=== PATIENT | male | born 1980 ===

== ENCOUNTER 2017-05-07 17:40 | Inpatient (IN) | payer OTHER ==
--- NOTE | 2017-05-07 18:39 | XRay Report ---
FINAL REPORT PROCEDURE: XR TIBIA FIBULA 2V RT TECHNIQUE: RIGHT tibia and fibula radiographs, AP and lateral views. CPT 39640 HISTORY: Fx COMPARISON: No prior studies are available for comparison. FINDINGS: Fracture (s) and/or Dislocation(s): Acute oblique comminuted fracture is noted involving the distal diametaphyseal region of tibia with medial angulation of the distal fragments. There is also an acute transverse fracture involving the distal fibular diaphysis with medial displacement of the distal fragment. Internal fixation plate and multiple screws are identified in the distal fibular fragment.. Joint space(s): Normal . Soft tissues: Moderate degree soft tissue swelling is noted.. Bone mineralization: Normal . Foreign bodies: None . IMPRESSION: Acute fractures of distal tibia and fibula.
[2017-05-07] MEDS ORDERED: ZOFRAN IV ONE (18:59)
[2017-05-07] MEDS ORDERED: TORADOL IV ONE (18:59)
[2017-05-07] MEDS ORDERED: DILAUDID IV ONE ×2 (18:59→19:27)
--- NOTE | 2017-05-07 20:40 | XRay Report ---
FINAL REPORT EXAM: XR ANKLE 3+V RT HISTORY: right distal leg fracture TECHNIQUE: Right ankle three views PRIORS: None. FINDINGS: Surgical plate and screws bridge a remote distal fibular fracture. The proximal end of the plate there is an acute traumatic displaced fracture of the distal fibula. The proximal shaft of the fibula is laterally displaced approximately 1 bones with. There is an acute oblique fracture of the adjacent distal tibia with apex lateral angulation and displacement. Small comminuted fragments are present distally. No additional acute fractures are identified. The ankle mortise does not appear widened. No radiopaque foreign bodies are observed. IMPRESSION: Acute displaced angulated fractures of the distal tibia and fibular metaphysis Surgical plate and screws within the distal fibula
--- NOTE | 2017-05-07 20:42 | Emergency Department Report ---
ED Lower Extremity HPI - General Chief Complaint: Extremity Injury, Lower Stated Complaint: LEG FX Time Seen by Provider: 05/07/17 19:11 Source: patient, family Mode of arrival: Ambulatory Limitations: Physical Limitation - History of Present Illness Initial Comments: 36-year-old male with no past medical history other than previous right ankle surgery secondary to fracture 8 years ago presents to the hospital complaining of right ankle injury. Patient played soccer on May 04 (3 days ago) injuring his right ankle. Patient unable to bear weight since the fall. His son was graduating he did not want to miss the graduation therefore he's been using crutches and Solitario wrap to ambulate. Pain is 10/10 in intensity, constant, throbbing aching, worse with palpation and movement. No alleviating factors reported - Related Data Home Medications Medication Instructions Recorded Confirmed Last Taken Dextroamphetamine/Amphetamine 30 mg PO DAILY 05/07/17 05/07/17 Unknown [Adderall] Allergies Allergy/AdvReac Type Severity Reaction Status Date / Time No Known Allergies Allergy Unverified 07/01/15 19:17 ED Review of Systems ROS: Stated complaint: LEG FX Other details as noted in HPI Comment: All other systems reviewed and negative Other: Constitutional: No fevers chills Eyes: No eye pain visual changes ENT: No ear pain or throat pain Neck: Denies pain Respiratory: Denies cough wheezing shortness of breath Cardiovascular: Denies chest pain, palpitations, syncope GI: Denies abdominal pain, nausea, vomiting, diarrhea : Denies dysuria Musculoskeletal: As per HPI Skin: Denies rash, lesions, erythema Neurologic: Denies headache, numbness, weakness Psychiatric: Denies suicidal ideation, hallucinations thy ED Past Medical Hx - Past Medical History Previous Medical History?: No - Surgical History Additional Surgical History: Right ankle surgery - Social History Smoking Status: Current Every Day Smoker - Medications Home Medications: Home Medications Medication Instructions Recorded Confirmed Last Taken Type Dextroamphetamine/Amphetamine 30 mg PO DAILY 05/07/17 05/07/17 Unknown History [Adderall] ED Physical Exam - General Limitations: Physical Limitation - Other Other exam information: General: No limitations, patient is alert in no acute distress Head exam: Atraumatic, normocephalic Eyes exam: Normal appearance, pupils equal reactive to light, extraocular movements intact ENT: Moist mucous membrane, normal oropharynx Neck exam: Normal inspection, full range of motion, no meningismus nontender Respiratory exam: Clear to auscultation bilateral, no wheezes, rales, crackles Cardiovascular: Normal rate and rhythm, normal heart sounds Abdomen: Soft, nondistended, and nontender, with normal bowel sounds, no rebound, or guarding Extremity: Significant swelling to the distal right leg and right foot. 2+ DP pulse. Diffuse tenderness to ankle. Positive deformity Back: Normal Inspection, full range of motion, no tenderness Neurologic: Alert, oriented x3, cranial nerves intact, no motor or sensory deficit Psychiatric: normal affect, normal mood Skin: Warm, dry, intact ED Course Vital Signs 05/07/17 05/07/17 05/07/17 17:46 19:44 19:50 Temperature 97.9 F Pulse Rate 120 H 113 H Respiratory 20 18 18 Rate Blood Pressure 141/86 Blood Pressure 141/86 146/84 [Left] O2 Sat by Pulse 97 98 Oximetry 05/07/17 05/07/17 05/07/17 20:00 20:30 21:50 Temperature Pulse Rate 106 H Respiratory 18 18 18 Rate Blood Pressure Blood Pressure 119/63 [Left] O2 Sat by Pulse 98 96 Oximetry - Reevaluation(s) Reevaluation #1: 05/07/17 20:43 Medication medicated with Dilaudid, Zofran, and Toradol for pain ED Lower Extremity MDM - Lab Data Result diagrams: 05/07/17 21:29 05/07/17 21:29 Lab Results 05/07/17 05/07/17 05/07/17 Range/Units 21:29 21:29 21:29 WBC 8.6 (4.5-11.0) K/mm3 RBC 4.22 (3.65-5.03) M/mm3 Hgb 14.4 (11.8-15.2) gm/dl Hct 41.7 (35.5-45.6) % MCV 99 H (84-94) fl MCH 34 H (28-32) pg MCHC 35 H (32-34) % RDW 12.9 L (13.2-15.2) % Plt Count 216 (140-440) K/mm3 Lymph % (Auto) 28.8 (13.4-35.0) % [place] % (Auto) 11.2 H (0.0-7.3) % Eos % (Auto) 5.9 H (0.0-4.3) % Baso % (Auto) 0.7 (0.0-1.8) % Lymph # 2.5 (1.2-5.4) K/mm3 [place] # 1.0 H (0.0-0.8) K/mm3 Eos # 0.5 H (0.0-0.4) K/mm3 Baso # 0.1 (0.0-0.1) K/mm3 Seg Neutrophils % 53.4 (40.0-70.0) % Seg Neutrophils # 4.6 (1.8-7.7) K/mm3 PT 13.0 (12.2-14.9) Sec. INR 0.94 (0.87-1.13) APTT 25.2 (24.2-36.6) Sec. Sodium 137 (137-145) mmol/L Potassium 4.1 (3.6-5.0) mmol/L Chloride 96.6 L (98-107) mmol/L Carbon Dioxide 28 (22-30) mmol/L Anion Gap 17 mmol/L BUN 15 (9-20) mg/dL Creatinine 0.7 L (0.8-1.5) mg/dL Estimated GFR > 60 ml/min BUN/Creatinine Ratio 21 % Glucose 104 H (75-100) mg/dL Calcium 9.0 (8.4-10.2) mg/dL Blood Type Antibody Screen THA Antibody Screen 05/07/17 Range/Units 21:29 WBC (4.5-11.0) K/mm3 RBC (3.65-5.03) M/mm3 Hgb (11.8-15.2) gm/dl Hct (35.5-45.6) % MCV (84-94) fl MCH (28-32) pg MCHC (32-34) % RDW (13.2-15.2) % Plt Count (140-440) K/mm3 Lymph % (Auto) (13.4-35.0) % [place] % (Auto) (0.0-7.3) % Eos % (Auto) (0.0-4.3) % Baso % (Auto) (0.0-1.8) % Lymph # (1.2-5.4) K/mm3 [place] # (0.0-0.8) K/mm3 Eos # (0.0-0.4) K/mm3 Baso # (0.0-0.1) K/mm3 Seg Neutrophils % (40.0-70.0) % Seg Neutrophils # (1.8-7.7) K/mm3 PT (12.2-14.9) Sec. INR (0.87-1.13) APTT (24.2-36.6) Sec. Sodium (137-145) mmol/L Potassium (3.6-5.0) mmol/L Chloride (98-107) mmol/L Carbon Dioxide (22-30) mmol/L Anion Gap mmol/L BUN (9-20) mg/dL Creatinine (0.8-1.5) mg/dL Estimated GFR ml/min BUN/Creatinine Ratio % Glucose (75-100) mg/dL Calcium (8.4-10.2) mg/dL Blood Type A POSITIVE Antibody Screen Not Reportable THA Antibody Screen Negative - Radiology Data Radiology results: report reviewed Right tib-fib x-ray: Acute fracture of the distal tibia and fibula Right ankle x-ray: Acute distress indurated fracture of the distal tibia and fibular metaphysis. Surgical plate and screws within the distal fibula - Medical Decision Making Patient will be admitted for surgical repair of ankle fracture. Dr. Jama orthopedic surgeon informed - Differential Diagnosis fracture, contusion, sprain Critical Care Time: No Critical care attestation.: If time is entered above; I have spent that time in minutes in the direct care of this critically ill patient, excluding procedure time. ED Disposition Clinical Impression: Closed fracture of right distal fibula, Fracture of tibia, distal, closed, History of fracture of right ankle Disposition: OP ADMIT IP TO THIS HOSP Is pt being admited?: Yes Condition: Stable Time of Disposition: 20:50 (Dr Lomeli/hosp)
[2017-05-07 21:55] LABS: Basophils % (Auto) 0.7 % (0.0-1.8); Eosinophils % (Auto) 5.9 % (0.0-4.3); Hematocrit 41.7 % (35.5-45.6); Hemoglobin 14.4 gm/dl (11.8-15.2); Mean Corpuscular HGB Conc 35 % (32-34); Mean Corpuscular Hemoglobin 34 pg (28-32); Mean Corpuscular Volume 99 fl (84-94); Platelet Count 216 K/mm3 (140-440); Red Blood Count 4.22 M/mm3 (3.65-5.03); Red Cell Distribution Width 12.9 % (13.2-15.2); White Blood Count 8.6 K/mm3 (4.5-11.0)
[2017-05-07 22:02] LABS: Anion Gap 17 mmol/L; BUN/Creatinine Ratio 21; Blood Urea Nitrogen 15 mg/dL (9-20); Carbon Dioxide 28 mmol/L (22-30); Chloride 96.6 mmol/L (98-107); Glucose 104 mg/dL (75-100); Potassium 4.1 mmol/L (3.6-5.0); Sodium 137 mmol/L (137-145)
[2017-05-07 22:13] LABS: INR 0.94 (0.87-1.13); Partial Thromboplastin Time 25.2 Sec. (24.2-36.6)
[2017-05-07] MEDS ORDERED: DILAUDID IM PRN (22:43)
[2017-05-07] MEDS ORDERED: ZOFRAN IV PRN (22:44)
[2017-05-07] MEDS ORDERED: RESTORIL PO PRN (22:45)
[2017-05-08] MEDS: DILAUDID IV PRN ×8 (02:32→21:51)
[2017-05-08] MEDS: NACL 0.9% 1000 ML 1,000 ML IV SCH ×3 (02:34→20:56)
--- NOTE | 2017-05-08 08:37 | Progress Note ---
Assessment and Plan Assessment and plan: 36-year-old male with no significant past medical history who presented to the hospital after a right ankle injury from playing soccer 3 days prior to presentation. he is patient has fallen, unable to bear weight on the ankle. Has a previous history of right ankle surgery secondary to fracture 8 years ago. Patient played soccer on May 04 (3 days ago) injuring his right ankle. Xray of R ankle: image reviewed, R ankle Fracture for Orthopedic surgery repair History Interval history: Continues to complain of pain of the right ankle, pain is 10 out of 10, sharp, worse with movement or any attempt to bear weight on the ankle Hospitalist Physical - Physical exam Narrative exam: General.: Appears well, no distress, nontoxic HEENT: Moist mucous membranes, extraocular muscles intact, no lymphadenopathy Neck: supple Cardiac: S1-S2 heard Lungs: clear to auscultation bilaterally Abdomen: soft , nontender, nondistended, bowel sounds positive Extremities: Deformed right ankle Skin: no rash or lesions Neurologic: no gross focal deficits Psych: appropriate behavior, appropriate mood, corporative, judgment intact - Constitutional Vitals: Temp Pulse Resp BP Pulse Ox 98.0 F 76 20 133/79 95 05/08/17 07:35 05/08/17 07:35 05/08/17 08:23 05/08/17 07:35 05/08/17 07:35 Results - Labs CBC & Chem 7: 05/07/17 21:29 05/07/17 21:29 Labs: Laboratory Last Values WBC 8.6 K/mm3 (4.5-11.0) 05/07/17 21: RBC 4.22 M/mm3 (3.65-5.03) 05/07/17 21:29 Hgb 14.4 gm/dl (11.8-15.2) 05/07/17 21:29 Hct 41.7 % (35.5-45.6) 05/07/17 21: MCV 99 fl (84-94) H 05/07/17 21: MCH 34 pg (28-32) H 05/07/17 21: MCHC 35 % (32-34) H 05/07/17 21:29 RDW 12.9 % (13.2-15.2) L 05/07/17 21:29 Plt Count 216 K/mm3 (140-440) 05/07/17 21:29 Lymph % (Auto) 28.8 % (13.4-35.0) 05/07/17 21:29 [place] % (Auto) 11.2 % (0.0-7.3) H 05/07/17 21:29 Eos % (Auto) 5.9 % (0.0-4.3) H 05/07/17 21:29 Baso % (Auto) 0.7 % (0.0-1.8) 05/07/17 21: Lymph # 2.5 K/mm3 (1.2-5.4) 05/07/17 21: [place] # 1.0 K/mm3 (0.0-0.8) H 05/07/17 21: Eos # 0.5 K/mm3 (0.0-0.4) H 05/07/17 21: Baso # 0.1 K/mm3 (0.0-0.1) 05/07/17 21: Seg Neutrophils % 53.4 % (40.0-70.0) 05/07/17 21: Seg Neutrophils # 4.6 K/mm3 (1.8-7.7) 05/07/17 21: PT 13.0 Sec. (12.2-14.9) 05/07/17 21: INR 0.94 (0.87-1.13) 05/07/17 21:29 APTT 25.2 Sec. (24.2-36.6) 05/07/17 21:29 Sodium 137 mmol/L (137-145) 05/07/17 21:29 Potassium 4.1 mmol/L (3.6-5.0) 05/07/17 21:29 Chloride 96.6 mmol/L (98-107) L 05/07/17 21:29 Carbon Dioxide 28 mmol/L (22-30) 05/07/17 21:29 Anion Gap 17 mmol/L 05/07/17 21:29 BUN 15 mg/dL (9-20) 05/07/17 21:29 Creatinine 0.7 mg/dL (0.8-1.5) L 05/07/17 21:29 Estimated GFR > 60 ml/min 05/07/17 21:29 BUN/Creatinine Ratio 21 % 05/07/17 21:29 Glucose 104 mg/dL (75-100) H 05/07/17 21: Calcium 9.0 mg/dL (8.4-10.2) 05/07/17 21: Blood Type A POSITIVE 05/07/17 21:29 Antibody Screen Not Reportable 05/07/17 21:29 THA Antibody Screen Negative 05/07/17 21:29
--- NOTE | 2017-05-08 09:46 | History and Physical Report ---
CHIEF COMPLAINT: Pain in the right ankle area. HISTORY OF PRESENT ILLNESS: The patient is a 36-year-old male who developed pain in the right ankle area after playing soccer 05/04/2017, during which he sustained some injury. The patient said it was difficult to bear weight on that right lower extremity since the game he played and admitted to falling down where he was playing the game. He said he has been using crutches because his son was graduating and he did not want to miss the ceremony, so he Solitario wrapped his ankle and has been using crutches with pain going on. There is no history of shortness of breath and no history of chest pain and the patient presented to the Emergency Room. PAST MEDICAL HISTORY: Pertinent for fracture of the same right ankle in the past. PAST SURGICAL HISTORY: Pertinent for right ankle surgery. FAMILY HISTORY: Noncontributory. SOCIAL HISTORY: The patient smokes cigarettes and does not use illicit drugs. Denies history of alcohol intake. CURRENT MEDICATIONS: The patient is on Adderall 30 mg by mouth daily. ALLERGIES: THE PATIENT IS ALLERGIC TO SHELLFISH. REVIEW OF SYSTEMS: CONSTITUTIONAL: There is no fever, no chills, no diaphoresis. HEENT: There is no headache or sore throat. CARDIOVASCULAR: There is no chest pain, orthopnea. RESPIRATORY: There is no shortness of breath or cough. GASTROINTESTINAL: There is no nausea, no vomiting, no abdominal pain, diarrhea or constipation. NEUROLOGICAL: There is no numbness, no dizziness, no altered mental status. MUSCULOSKELETAL: There is pain in the right ankle and inability to use the right ankle. DERMATOLOGICAL: There is no skin rash or itching. GENITOURINARY: There is no dysuria, hematuria, or flank pain. Rest of system review is normal. PHYSICAL EXAMINATION: GENERAL: At the time of exam, the patient was found to be alert, oriented x 3 and not in acute distress. VITAL SIGNS: Shows temperature of 98.1, pulse of 88, respirations 16, blood pressure 129/76, O2 sat of 97% on room air. HEENT: Showed pupils to be equal, round, reactive to light and accommodation. Extraocular muscles are intact. NECK: Supple with no JVD or carotid bruit. CARDIOVASCULAR: Show first and second heart sounds with no gallops or murmur. RESPIRATORY: Show good air entry on both sides of the lung with no abnormal breath sounds. GASTROINTESTINAL: Show abdomen to be full, soft, nontender with no organomegaly or rigidity. NEUROLOGICAL: Shows no focal deficits. MUSCULOSKELETAL: Showed the right ankle area and legs splinted and wrapped up with Solitario bandage. DERMATOLOGICAL: Show no skin rash. GENITOURINARY: Show no costovertebral angle tenderness. PERTINENT LABORATORY AND IMAGING STUDIES: The x-ray shows acute fracture of the distal tibia and fibula. Lab results, the patient's CBC showed normal white count, normal hemoglobin and normal hematocrit and CBC differential showed elevated monocyte count of 11.2% and elevated eosinophilic count of 5.9%. The patient's chemistry shows normal sodium, normal potassium. Rest of chemistry was unremarkable. DIAGNOSIS: Right ankle bone fracture. PLAN: The patient will be admitted to medical surgical [place] and will be on IV Dilaudid 1 mg every 4 hours as needed for pain. The patient will also be on IV Zofran 4 mg every 6 hours for nausea and vomiting and will remain n.p.o. for evaluation and treatment by the orthopedic surgeon Dr. Jama who has already been consulted by the Emergency Room. The patient will be on Tylenol 650 mg by mouth every 4 hours for fever and headache and will be on temazepam 15 mg at bedtime for insomnia. The patient's home medications will be started as shown in the medication reconciliation section. JOB# [id number] OCN/NTS
[2017-05-08] MEDS ORDERED: DEXTROAMPHETAMINE PO SCH (10:00)
[2017-05-08] MEDS ORDERED: AMPHETAMINE PO SCH (10:00)
[2017-05-08] MEDS ORDERED: SUBLIMAZE ONE ×2 (12:21→16:57)
[2017-05-08] MEDS ORDERED: DIPRIVAN 10 MG/ML IV ONE (12:21)
[2017-05-08] MEDS ORDERED: ANCEF/STERILE WATER 2 GM/20 ML IV NR (13:38)
[2017-05-08] MEDS ORDERED: NEURONTIN PO NR (13:42)
[2017-05-08] MEDS ORDERED: VERSED IV NR (13:42)
[2017-05-08] MEDS ORDERED: PEPCID PO NR (13:42)
--- NOTE | 2017-05-08 13:44 | Anesthesia Day of Surgery ---
Anesthesia Day of Surgery - Day of Surgery Patient Examined: Yes Patient H&P Reviewed: Yes Patient is NPO: Yes
--- NOTE | 2017-05-08 13:44 | Anesthesia Consultation ---
Anesthesia Consult and Med Hx Date of service: 05/08/17 - Airway Anesthetic Teeth Evaluation: Good ROM Head & Neck: Adequate Mental/Hyoid Distance: Adequate Mallampati Class: Class II Intubation Access Assessment: Probably Good - Pulmonary Exam CTA: Yes - Cardiac Exam Cardiac Exam: RRR - Pre-Operative Health Status ASA Pre-Surgery Classification: ASA2 Proposed Anesthetic Plan: General - Pulmonary Hx Smoking: Yes (1/2 PPD, ALSO DIPS) Hx Asthma: No Hx Sleep Apnea: No - Cardiovascular System Hx Hypertension: Yes (NOT ON MEDS) - Central Nervous System Hx Seizures: No CVA: No Hx Psychiatric Problems: No - Endocrine Hx End Stage Renal Disease: No - Other Systems Hx Alcohol Use: No (OCCASIONAL) Hx Cancer: No
[2017-05-08] MEDS ORDERED: XYLOCAINE MPF 2% ONE (14:54)
[2017-05-08] MEDS ORDERED: DECADRON ONE (14:54)
[2017-05-08] MEDS ORDERED: ZOFRAN ONE (14:54)
[2017-05-08] MEDS ORDERED: DILAUDID ONE (16:39)
[2017-05-08] MEDS: SUBLIMAZE IV PRN ×4 (16:53→17:29)
[2017-05-08] MEDS ORDERED: ZOFRAN IV PRN (16:55)
[2017-05-08] MEDS ORDERED: SODIUM CHLORIDE FLUSH SYRINGE 10 ML IV NR ×2 (17:00→18:00)
--- NOTE | 2017-05-08 17:12 | Post Anesthesia Evaluation ---
- Post Anesthesia Evaluation Patient Participated: Yes Airway Patent: Yes Stable Respiratory Function: Yes Temp > 96.8F: Yes Pain Manageable: Yes Adequeate Hydration: Yes Anesthesia Complications: No
--- NOTE | 2017-05-08 17:12 | Procedure Note ---
Date of procedure: 05/08/17 Pre-op diagnosis: displaced right tib-fib fracture Post-op diagnosis: same Procedure: Procedure Closed reduction insertion of intramedullary nail right tibia Indications 36-year-old male who sustained a displaced distal tib-fib fracture as a result of an injury playing soccer yesterday. He has a past history of surgery to his right ankle years ago with retained plate and screws along the distal fibula. Procedure The patient was brought to the OR placed in the OR table in supine position following induction and intubation by anesthesia the patient's right lower extremity was prepped and draped in the usual sterile manner. A timeout procedure was done to identify the patient and the correct operative site. Next the leg was exsanguinated followed by inflation of the pneumatic tourniquet to 300 mmHg an incision was made at the inferior pole of the patella and taken down distally towards 2. Topical incision was carried down through skin and the patella tendon was incised longitudinally and retracted out of the operative field A large awl was used to enter the proximal tibial canal this was followed by insertion of the guidewire under C-arm fluoroscopy the guidewire was advanced down the shaft into and across the fracture site into the distal fragment in AP and lateral view was obtained showing good placement of the guidewire The canal was reamed to a 12 mm diameter measuring the 345 mm length. Following reaming of the medullary canal the IM estelle was assembled and was then placed into the medullary canal and under C-arm fluoroscopy was guided into the distal fragment again AP and lateral views were obtained showing good placement of the medullary nail next the distal and proximal interlocking screws were inserted under fluoroscopic control. Next was then copiously irrigated the patella tendon was repaired using 0 Vicryl followed by closure of the subcutaneous tissue with 2-0 Vicryl and metallic rome for the skin, routine post op dressing applied. He was extubated and taken to post op recovery in stable condition. Anesthesia: GETA Surgeon: MELISSA GRAY Estimated blood loss: minimal Pathology: none Condition: stable Disposition: PACU
[2017-05-08] MEDS: TYLENOL PO PRN (20:52)
[2017-05-09] MEDS: DILAUDID IV PRN ×7 (01:42→20:54)
[2017-05-09] MEDS: NACL 0.9% 1000 ML 1,000 ML IV SCH (06:13)
--- NOTE | 2017-05-09 09:17 | XRay Report ---
RIGHT ANKLE RADIOGRAPHS INDICATION: Intramedullary nail right distal tibia-fibula. COMPARISON: Yesterday. FINDINGS: Frontal and lateral intraoperative fluoroscopic radiographs, 4:01 PM, 05/08/2017 now demonstrate distal tibial intramedullary estelle anchored distally by at least 2 screws. Overall improved fracture alignment. Comminution may again though be noted. Distal fibular hardware appears stable. CONCLUSION: Intraoperative fluoroscopic assistance provided during distal tibial fracture stabilization, as described. Thank you for the opportunity to participate in this patient's care.
--- NOTE | 2017-05-09 09:24 | XRay Report ---
RIGHT TIBIA FIBULA RADIOGRAPHS INDICATION: Distal tibia-fibula fracture. COMPARISON: Yesterday. FINDINGS: Frontal intraoperative fluoroscopic radiographs, 4 images, 3:29 PM, 05/08/2017 demonstrate new tibial intramedullary estelle, anchored by a single threaded screw proximally at this time. Overall improved distal tibial fracture alignment. Stable lower fibular shaft displaced fracture and distal hardware. CONCLUSION: Intraoperative fluoroscopic assistance provided during distal tibial and fibular fracture stabilization, as described. Thank you for the opportunity to participate in this patient's care.
--- NOTE | 2017-05-09 11:37 | Progress Note ---
Assessment and Plan Assessment and plan: 36-year-old male with no significant past medical history who presented to the hospital after a right ankle injury from playing soccer 3 days prior to presentation. he is patient has fallen, unable to bear weight on the ankle. Has a previous history of right ankle surgery secondary to fracture 8 years ago. Patient played soccer on May 04 (3 days ago) injuring his right ankle. Xray of R ankle: image reviewed, R ankle Fracture s/p Orthopedic surgery repair 05/08 continue PT History Interval history: Right ankle pain is improved, now 4/10, dull, worse with movement and bearing weight Hospitalist Physical - Physical exam Narrative exam: General.: Appears well, no distress, nontoxic HEENT: Moist mucous membranes, extraocular muscles intact, no lymphadenopathy Neck: supple Cardiac: S1-S2 heard Lungs: clear to auscultation bilaterally Abdomen: soft , nontender, nondistended, bowel sounds positive Extremities: R ankle with clean bandage, ankle is swollen, not tender Skin: no rash or lesions Neurologic: no gross focal deficits Psych: appropriate behavior, appropriate mood, corporative, judgment intact - Constitutional Vitals: Temp Pulse Resp BP Pulse Ox 99.2 F 80 20 136/87 97 05/09/17 07:45 05/09/17 07:45 05/09/17 07:45 05/09/17 07:45 05/09/17 07:45 Results - Labs CBC & Chem 7: 05/07/17 21:29 05/07/17 21:29 Labs: Laboratory Last Values WBC 8.6 K/mm3 (4.5-11.0) 05/07/17 21:29 RBC 4.22 M/mm3 (3.65-5.03) 05/07/17 21:29 Hgb 14.4 gm/dl (11.8-15.2) 05/07/17 21:29 Hct 41.7 % (35.5-45.6) 05/07/17 21:29 MCV 99 fl (84-94) H 05/07/17 21:29 MCH 34 pg (28-32) H 05/07/17 21:29 MCHC 35 % (32-34) H 05/07/17 21:29 RDW 12.9 % (13.2-15.2) L 05/07/17 21:29 Plt Count 216 K/mm3 (140-440) 05/07/17 21:29 Lymph % (Auto) 28.8 % (13.4-35.0) 05/07/17 21:29 [place] % (Auto) 11.2 % (0.0-7.3) H 05/07/17 21:29 Eos % (Auto) 5.9 % (0.0-4.3) H 05/07/17 21:29 Baso % (Auto) 0.7 % (0.0-1.8) 05/07/17 21: Lymph # 2.5 K/mm3 (1.2-5.4) 05/07/17 21: [place] # 1.0 K/mm3 (0.0-0.8) H 05/07/17 21: Eos # 0.5 K/mm3 (0.0-0.4) H 05/07/17 21: Baso # 0.1 K/mm3 (0.0-0.1) 05/07/17 21: Seg Neutrophils % 53.4 % (40.0-70.0) 05/07/17 21: Seg Neutrophils # 4.6 K/mm3 (1.8-7.7) 05/07/17 21: PT 13.0 Sec. (12.2-14.9) 05/07/17 21:29 INR 0.94 (0.87-1.13) 05/07/17 21:29 APTT 25.2 Sec. (24.2-36.6) 05/07/17 21:29 Sodium 137 mmol/L (137-145) 05/07/17 21:29 Potassium 4.1 mmol/L (3.6-5.0) 05/07/17 21: Chloride 96.6 mmol/L (98-107) L 05/07/17 21:29 Carbon Dioxide 28 mmol/L (22-30) 05/07/17 21:29 Anion Gap 17 mmol/L 05/07/17 21:29 BUN 15 mg/dL (9-20) 05/07/17 21:29 Creatinine 0.7 mg/dL (0.8-1.5) L 05/07/17 21:29 Estimated GFR > 60 ml/min 05/07/17 21:29 BUN/Creatinine Ratio 21 % 05/07/17 21:29 Glucose 104 mg/dL (75-100) H 05/07/17 21:29 Calcium 9.0 mg/dL (8.4-10.2) 05/07/17 21:29 Blood Type A POSITIVE 05/07/17 21:29 Antibody Screen Not Reportable 05/07/17 21:29 THA Antibody Screen Negative 05/07/17 21:29
[2017-05-09] MEDS: TYLENOL PO PRN (14:02)
--- NOTE | 2017-05-09 15:04 | Progress Note ---
Subjective Date of service: 05/09/17 Interval history: Pt seen post-op day 1, satisfied with anesthesia, in considerable pain, says that medicine only works for 30 minutes, informed floor nurse of the situation. Objective - Constitutional Vitals: Vital Signs - 12hr 05/09/17 05/09/17 05/09/17 06:00 06:02 06:13 Temperature 99.6 F Pulse Rate 69 68 Respiratory 15 16 15 Rate Blood Pressure 140/80 [Right] O2 Sat by Pulse 100 99 Oximetry 05/09/17 05/09/17 05/09/17 07:44 07:45 12:55 Temperature 99.2 F 100.4 F H Pulse Rate 84 80 85 Respiratory 20 18 Rate Blood Pressure 136/87 150/93 [Right] O2 Sat by Pulse 97 97 97 Oximetry - Labs CBC & Chem 7: 05/07/17 21:29 05/07/17 21:29
--- NOTE | 2017-05-09 16:28 | Progress Note ---
Assessment and Plan Status post IM nail right tibia doing well Plan -continue physical therapy and observation hopefully discharge soon Subjective Date of service: 05/09/17 Interval history: States feeling much better. Awaiting physical therapy Objective Vital signs: Vital Signs - 12hr 05/09/17 05/09/17 05/09/17 06:00 06:02 06:13 Temperature 99.6 F Pulse Rate 69 68 Respiratory 15 16 15 Rate Blood Pressure 140/80 [Right] O2 Sat by Pulse 100 99 Oximetry 05/09/17 05/09/17 05/09/17 07:44 07:45 12:55 Temperature 99.2 F 100.4 F H Pulse Rate 84 80 85 Respiratory 20 18 Rate Blood Pressure 136/87 150/93 [Right] O2 Sat by Pulse 97 97 97 Oximetry Narrative Exam: Postoperative dressings intact compartments soft good capillary refill moves all digits well - Labs CBC & BMP: 05/07/17 21:29 05/07/17 21:29
[2017-05-10] MEDS: DILAUDID IV PRN ×5 (01:16→20:30)
[2017-05-10] MEDS: ROXICODONE PO PRN ×2 (08:13→15:32)
--- NOTE | 2017-05-10 10:09 | Progress Note ---
Assessment and Plan Assessment and plan: 36-year-old male with no significant past medical history who presented to the hospital after a right ankle injury from playing soccer 3 days prior to presentation. he is patient has fallen, unable to bear weight on the ankle. Has a previous history of right ankle surgery secondary to fracture 8 years ago. Patient played soccer on May 04 (3 days ago) injuring his right ankle. Xray of R ankle: image reviewed, sp repair of tibular and Fibular fracture R ankle Fracture s/p Orthopedic surgery repair 05/08 continue pain control continue PT R knee pain obtain Xray of R knee Tentative DC tomorrow with ambulatory devices if continues to improve History Interval history: Right ankle pain is improved, now 4/10, dull, worse with movement and bearing weight Hospitalist Physical - Physical exam Narrative exam: General.: Appears well, no distress, nontoxic HEENT: Moist mucous membranes, extraocular muscles intact, no lymphadenopathy Neck: supple Cardiac: S1-S2 heard Lungs: clear to auscultation bilaterally Abdomen: soft , nontender, nondistended, bowel sounds positive Extremities: R ankle with clean bandage, ankle is swollen, not tender Skin: no rash or lesions Neurologic: no gross focal deficits Psych: appropriate behavior, appropriate mood, corporative, judgment intact - Constitutional Vitals: Temp Pulse Resp BP Pulse Ox 99.3 F 68 18 132/70 96 05/10/17 07:30 05/10/17 07:32 05/10/17 07:32 05/10/17 07:30 05/10/17 07:32 Results - Labs CBC & Chem 7: 05/07/17 21:29 05/07/17 21:29 Labs: Laboratory Last Values WBC 8.6 K/mm3 (4.5-11.0) 05/07/17 21:29 RBC 4.22 M/mm3 (3.65-5.03) 05/07/17 21:29 Hgb 14.4 gm/dl (11.8-15.2) 05/07/17 21:29 Hct 41.7 % (35.5-45.6) 05/07/17 21:29 MCV 99 fl (84-94) H 05/07/17 21:29 MCH 34 pg (28-32) H 05/07/17 21:29 MCHC 35 % (32-34) H 05/07/17 21:29 RDW 12.9 % (13.2-15.2) L 05/07/17: Plt Count 216 K/mm3 (140-440) 05/07/17 21: Lymph % (Auto) 28.8 % (13.4-35.0) 05/07/17: Aurora % (Auto) 11.2 % (0.0-7.3) H 05/07/17: Eos % (Auto) 5.9 % (0.0-4.3) H 05/07/17 21: Baso % (Auto) 0.7 % (0.0-1.8) 05/07/17: Lymph # 2.5 K/mm3 (1.2-5.4) 05/07/17: Aurora # 1.0 K/mm3 (0.0-0.8) H 05/07/17: Eos # 0.5 K/mm3 (0.0-0.4) H 05/07/17: Baso # 0.1 K/mm3 (0.0-0.1) 05/07/17 21: Seg Neutrophils % 53.4 % (40.0-70.0) 05/07/17: Seg Neutrophils # 4.6 K/mm3 (1.8-7.7) 05/07/17 21: PT 13.0 Sec. (12.2-14.9) 05/07/17: INR 0.94 (0.87-1.13) 05/07/17: APTT 25.2 Sec. (24.2-36.6) 05/07/17 21: Sodium 137 mmol/L (137-145) 05/07/17 21: Potassium 4.1 mmol/L (3.6-5.0) 05/07/17: Chloride 96.6 mmol/L (98-107) L 05/07/17: Carbon Dioxide 28 mmol/L (22-30) 05/07/17:29 Anion Gap 17 mmol/L 05/07/17: BUN 15 mg/dL (9-20) 05/07/17: Creatinine 0.7 mg/dL (0.8-1.5) L 05/07/17 21:29 Estimated GFR > 60 ml/min 05/07/17 21:29 BUN/Creatinine Ratio 21 % 05/07/17 21:29 Glucose 104 mg/dL (75-100) H 05/07/17 21:29 Calcium 9.0 mg/dL (8.4-10.2) 05/07/17 21:29 Blood Type A POSITIVE 05/07/17 21:29 Antibody Screen Not Reportable 05/07/17 21:29 THA Antibody Screen Negative 05/07/17 21:29
--- NOTE | 2017-05-10 12:13 | XRay Report ---
Right knee: AP and lateral views are obtained. Compared to the patient's prior exam of the tibia on May 07 and medullary estelle has been placed in the tibia extending to the soft plateau region. Closure rome are noted anteriorly. There is generalized edema of the soft tissues in the infrapatellar region as well as what appears to be disruption of the soft tissues and fat above the patella. There may be a suprapatellar effusion. The knee joint and bone structures however otherwise appears generally unremarkable and unchanged. Impression: Postoperative placement of tibial estelle and disruption of soft tissues in the knee region.
[2017-05-10] MEDS: NACL 0.9% 1000 ML 1,000 ML IV SCH (15:39)
[2017-05-11] MEDS: DILAUDID IV PRN ×4 (01:00→12:53)
[2017-05-11] MEDS: NACL 0.9% 1000 ML 1,000 ML IV SCH (04:15)
[2017-05-11] MEDS: ROXICODONE PO PRN ×2 (09:40→16:13)
--- NOTE | 2017-05-11 09:48 | Discharge Summary ---
Providers - Providers Date of Admission: 05/07/17 22:41 Attending physician: VALENTE REYNOLDS MD 05/08/17 17:03 Physical Therapy Evaluation and Treat [CONS] Routine Comment: Reason For Exam: postop evaluation Weight bearing status?: Partial wt bearing Assistive devices?: Yes If so list: Crutches Primary care physician: ARAVIND YUNG MD Hospitalization Condition: Stable Hospital course: 36-year-old male with no significant past medical history who presented to the hospital after a right ankle injury from playing soccer 3 days prior to presentation. he is patient has fallen, unable to bear weight on the ankle. He was found to have a fracture, for which she received ORIF. He was well managed by orthopedic surgery. Patient's did well with physical therapy, he clinically improved and he was provided ambulatory devices by the hospital prior to discharge. Discharge diagnoses Right ankle fracture Ambulatory dysfunction Disposition: - TO HOME OR SELFCARE Time spent for discharge: 33 minutes Core Measure Documentation - Palliative Care Palliative Care/ Comfort Measures: Not Applicable - Core Measures Any of the following diagnoses?: none Exam - Physical Exam Narrative exam: General.: Appears well, no distress, nontoxic HEENT: Moist mucous membranes, extraocular muscles intact, no lymphadenopathy Neck: supple Cardiac: S1-S2 heard Lungs: clear to auscultation bilaterally Abdomen: soft , nontender, nondistended, bowel sounds positive Extremities: R ankle with clean bandage, ankle is swollen, not tender Skin: no rash or lesions Neurologic: no gross focal deficits Psych: appropriate behavior, appropriate mood, corporative, judgment intact - Constitutional Vitals: Temp Pulse Resp BP Pulse Ox 98.6 F 57 L 18 125/71 98 05/11/17 07:47 05/11/17 07:47 05/11/17 07:47 05/11/17 07:47 05/11/17 07:47 Plan Follow up with: PRIMARY CAREMD [Primary Care Provider] - 7 Days Prescriptions: Cephalexin [Keflex] 500 mg PO Q12HR #30 cap Oxycodone HCl [Roxicodone TAB] 15 mg PO Q6H PRN #30 tablet PRN Reason: Pain Oxycodone HCl/Acetaminophen [Percocet 7.5/325 mg] 1 each PO Q6HR PRN #40 tablet PRN Reason: Pain Other Discharge Orders: Home Health Care (Amb) Location: Determined By Patient [facility] (Amb) Location: Determined By Patient
[2017-05-11 16:20] VITALS: BP 147/83
--- NOTE | 2017-05-11 16:34 | Progress Note ---
Assessment and Plan Assessment and plan: 36-year-old male with no significant past medical history who presented to the hospital after a right ankle injury from playing soccer 3 days prior to presentation. he is patient has fallen, unable to bear weight on the ankle. Has a previous history of right ankle surgery secondary to fracture 8 years ago. Patient played soccer on May 04 (3 days ago) injuring his right ankle. Xray of R ankle: image reviewed, sp repair of tibular and Fibular fracture R ankle Fracture s/p Orthopedic surgery repair 05/08 continue pain control continue PT R knee pain Xray shows interval placement of tibial estelle, no acute findings, continue pain meds Tentative DC today or tomorrow with ambulatory devices History Interval history: Right ankle pain is improved, now 4/10, dull, worse with movement and bearing weight Hospitalist Physical - Physical exam Narrative exam: General.: Appears well, no distress, nontoxic HEENT: Moist mucous membranes, extraocular muscles intact, no lymphadenopathy Neck: supple Cardiac: S1-S2 heard Lungs: clear to auscultation bilaterally Abdomen: soft , nontender, nondistended, bowel sounds positive Extremities: R ankle with clean bandage, and bandage below R knee, ankle is swollen, not tender Skin: no rash or lesions Neurologic: no gross focal deficits Psych: appropriate behavior, appropriate mood, corporative, judgment intact - Constitutional Vitals: Temp Pulse Resp BP Pulse Ox 98.7 F 75 18 147/83 100 05/11/17 15:59 05/11/17 15:59 05/11/17 15:59 05/11/17 15:59 05/11/17 15:59 Results - Labs CBC & Chem 7: 05/07/17 21:29 05/07/17 21:29 Labs: Laboratory Last Values WBC 8.6 K/mm3 (4.5-11.0) 05/07/17 21:29 RBC 4.22 M/mm3 (3.65-5.03) 05/07/17 21:29 Hgb 14.4 gm/dl (11.8-15.2) 05/07/17 21:29 Hct 41.7 % (35.5-45.6) 05/07/17 21:29 MCV 99 fl (84-94) H 05/07/17 21:29 MCH 34 pg (28-32) H 05/07/17 21:29 MCHC 35 % (32-34) H 05/07/17 21:29 RDW 12.9 % (13.2-15.2) L 05/07/17 21: Plt Count 216 K/mm3 (140-440) 05/07/17 21: Lymph % (Auto) 28.8 % (13.4-35.0) 05/07/17 21: Jay % (Auto) 11.2 % (0.0-7.3) H 05/07/17 21:29 Eos % (Auto) 5.9 % (0.0-4.3) H 05/07/17 21: Baso % (Auto) 0.7 % (0.0-1.8) 05/07/17 21: Lymph # 2.5 K/mm3 (1.2-5.4) 05/07/17 21: Jay # 1.0 K/mm3 (0.0-0.8) H 05/07/17 21: Eos # 0.5 K/mm3 (0.0-0.4) H 05/07/17 21: Baso # 0.1 K/mm3 (0.0-0.1) 05/07/17 21: Seg Neutrophils % 53.4 % (40.0-70.0) 05/07/17: Seg Neutrophils # 4.6 K/mm3 (1.8-7.7) 05/07/17 21: PT 13.0 Sec. (12.2-14.9) 05/07/17 21: INR 0.94 (0.87-1.13) 05/07/17 21: APTT 25.2 Sec. (24.2-36.6) 05/07/17 21:29 Sodium 137 mmol/L (137-145) 05/07/17 21: Potassium 4.1 mmol/L (3.6-5.0) 05/07/17 21: Chloride 96.6 mmol/L (98-107) L 05/07/17: Carbon Dioxide 28 mmol/L (22-30) 05/07/17 21:29 Anion Gap 17 mmol/L 05/07/17 21:29 BUN 15 mg/dL (9-20) 10/08/17 21:29 Creatinine 0.7 mg/dL (0.8-1.5) L 05/07/17 21:29 Estimated GFR > 60 ml/min 05/07/17 21:29 BUN/Creatinine Ratio 21 % 05/07/17 21:29 Glucose 104 mg/dL (75-100) H 05/07/17 21:29 Calcium 9.0 mg/dL (8.4-10.2) 05/07/17 21:29 Blood Type A POSITIVE 05/07/17 21:29 Antibody Screen Not Reportable 05/07/17 21:29 THA Antibody Screen Negative 05/07/17 21:29
== END 2017-05-11 16:30 | disposition home or self-care (01) | DRG 494 ==
LOC: ED 17:40 → 3A 22:41 → 3B-SURG 05-08 00:21
PROVIDERS: ADMIT Internal Medicine; ATTEND Internal Medicine
PROC: 0QSG06Z Reposition Right Tibia with Intramedullary Internal Fixation Device, Open Approach (ICD-10-PCS; principal; 2017-05-08)
DX: S82.831A Other fracture of upper and lower end of right fibula, initial encounter for closed fracture (principal); F17.210 Nicotine dependence, cigarettes, uncomplicated; Z91.013 Allergy to seafood; I10 Essential (primary) hypertension
CPT/HCPCS: 36415; 80048; 85025; 85610; 85730; 86850; 86900; 86901; 99406; C1713; J0690; J1100; J1170; J1885; J2250; J2405; J2704; J3010; J7030

== ENCOUNTER 2017-12-02 03:55 | Emergency (ER) | payer SELFPAY ==
[2017-12-02 04:34] VITALS: BP 133/91
== END 2017-12-02 04:30 | disposition left against medical advice (07) ==
LOC: ED 03:55
DX: M25.571 Pain in right ankle and joints of right foot (principal); Z53.21 Procedure and treatment not carried out due to patient leaving prior to being seen by health care provider

== ENCOUNTER 2019-10-30 03:34 | Emergency (ER) | payer SELFPAY ==
[2019-10-30] MEDS ORDERED: SODIUM CHLORIDE 0.9% 1000 ML 1,000 ML IV ONE ×3 (03:47→06:17)
--- NOTE | 2019-10-30 03:47 | Emergency Department Report ---
ED Shortness of Breath HPI - General Stated Complaint: HYPERTENSION Time Seen by Provider: 10/30/19 03:41 Source: patient, EMS Mode of arrival: Stretcher Limitations: Altered Mental Status - History of Present Illness Initial Comments: Patient is a 39-year-old male that presents emergency room with complaints of palpitations and shortness of breath and diaphoresis. Patient states he was pulled over because he was swerving and he requested coming to the hospital because the shortness of breath was causing him to swerve. Patient states his symptoms are worsening. Patient denies drug and alcohol use, but patient states he took five 5-hour energies and some methamphetamines. Patient denies chest pain. Patient states he does not know the cause of his symptoms. Patient denies history of asthma. Patient denies fever and chills. Patient denies nausea vomiting. Patient denies recent travel. Patient denies recent international travel. Patient denies exposure to the novel coronavirus. Patient denies sick contacts. Patient denies fever and chills. Patient denies cough. Patient denies diarrhea. Patient denies coming in contact with anybody with symptoms of the novel coronavirus. Complaint: shortness of breath -: Sudden Severity: severe Consistency: constant Improves With: nothing Worsens With: nothing Associated Symptoms: other Treatments Prior to Arrival: none - Related Data Home Oxygen Therapy: No Home Medications Medication Instructions Recorded Confirmed Last Taken Dextroamphetamine/Amphetamine 30 mg PO DAILY 05/07/17 05/07/17 Unknown [Adderall] Previous Rx's Medication Instructions Recorded Last Taken Type Oxycodone HCl [Roxicodone TAB] 15 mg PO Q6H PRN #30 tablet 05/11/17 Unknown Rx Oxycodone HCl/Acetaminophen 1 each PO Q6HR PRN #40 tablet 05/11/17 Unknown Rx [Percocet 7.5/325 mg] cephALEXin [Keflex] 500 mg PO Q12HR #30 cap 05/11/17 Unknown Rx Allergies Allergy/AdvReac Type Severity Reaction Status Date / Time shellfish derived Allergy Angioedema Verified 05/08/17 06:06 ED Review of Systems ROS: Stated complaint: HYPERTENSION Other details as noted in HPI Constitutional: denies: chills, fever Eyes: denies: eye pain, eye discharge, vision change ENT: denies: ear pain, throat pain Respiratory: shortness of breath. denies: cough, wheezing Cardiovascular: palpitations. denies: chest pain Endocrine: no symptoms reported Gastrointestinal: denies: abdominal pain, nausea, diarrhea Genitourinary: denies: urgency, dysuria Musculoskeletal: denies: back pain, joint swelling, arthralgia Skin: denies: rash, lesions Neurological: denies: headache, weakness, paresthesias Psychiatric: denies: anxiety, depression Hematological/Lymphatic: denies: easy bleeding, easy bruising ED Past Medical Hx - Past Medical History Previous Medical History?: Yes Hx Hypertension: Yes (NOT ON MEDS) Hx Diabetes: No Hx Seizures: No Hx Asthma: No - Surgical History Additional Surgical History: Right ankle surgery - Social History Smoking Status: Current Every Day Smoker Substance Use Type: Alcohol, Heroin, Methamphetamines - Medications Home Medications: Home Medications Medication Instructions Recorded Confirmed Last Taken Type Dextroamphetamine/Amphetamine 30 mg PO DAILY 05/07/17 05/07/17 Unknown History [Adderall] Oxycodone HCl [Roxicodone TAB] 15 mg PO Q6H PRN #30 tablet 05/11/17 Unknown Rx Oxycodone HCl/Acetaminophen 1 each PO Q6HR PRN #40 tablet 05/11/17 Unknown Rx [Percocet 7.5/325 mg] cephALEXin [Keflex] 500 mg PO Q12HR #30 cap 05/11/17 Unknown Rx ED Physical Exam - General Limitations: Altered Mental Status General appearance: alert, anxious, other (Patient diaphoretic) - Head Head exam: Present: atraumatic, normocephalic - Eye Eye exam: Present: normal appearance, PERRL Pupils: Present: normal accommodation, mydriatic, other (Pupils dilated) - ENT ENT exam: Present: mucous membranes dry - Neck Neck exam: Present: normal inspection - Respiratory Respiratory exam: Present: normal lung sounds bilaterally. Absent: respiratory distress - Cardiovascular Cardiovascular Exam: Present: regular rate, normal rhythm, tachycardia. Absent: systolic murmur, diastolic murmur, rubs, gallop - GI/Abdominal GI/Abdominal exam: Present: soft, normal bowel sounds - Rectal Rectal exam: Present: deferred - Extremities Exam Extremities exam: Present: normal inspection - Back Exam Back exam: Present: normal inspection - Neurological Exam Neurological exam: Present: alert, oriented X3 - Psychiatric Psychiatric exam: Present: agitated, anxious - Expanded Psychiatric Exam Expanded Focused psych exam: Present: pressured speech, internal stimuli, delusional, paranoid, restlessness, flight of ideas, loose associations - Skin Skin exam: Present: warm, intact, normal color, diaphoretic. Absent: rash ED Course Vital Signs 10/30/19 10/30/19 10/30/19 03:42 03:45 03:53 Temperature 98.7 F Pulse Rate 136 H 131 H Respiratory 14 10 L Rate Blood Pressure 151/120 151/115 O2 Sat by Pulse Oximetry 10/30/19 10/30/19 10/30/19 03:59 04:00 04:30 Temperature Pulse Rate 140 H Respiratory 20 15 Rate Blood Pressure 158/114 168/129 O2 Sat by Pulse 100 97 Oximetry 10/30/19 10/30/19 10/30/19 04:46 05:00 05:16 Temperature Pulse Rate 138 H 137 H 142 H Respiratory 13 12 24 Rate Blood Pressure 180/102 168/129 168/129 O2 Sat by Pulse 99 99 81 L Oximetry 10/30/19 10/30/19 10/30/19 05:30 05:46 06:24 Temperature Pulse Rate 133 H 130 H Respiratory 18 14 Rate Blood Pressure 168/129 168/129 168/129 O2 Sat by Pulse 96 89 Oximetry 10/30/19 06:32 Temperature Pulse Rate Respiratory Rate Blood Pressure 156/104 O2 Sat by Pulse 98 Oximetry - Reevaluation(s) Reevaluation #1: Evaluation done. Patient exhibiting symptoms of acute psychosis with delusions and tangential thoughts. Patient states he is taking amphetamines. Patient placed on a 1013 for acute psychosis. 10/30/19 03:45 Reevaluation #2: Patient is still exhibiting psychotic symptoms. Patient given 2 L. Patient's heart rate has improved. 10/30/19 06:01 Reevaluation #3: Patient became acutely agitated. Patient given Geodon and Ativan. Patient pulled out another IV. Patient will have an IV placed and more saline will be given to the patient 10/30/19 06:16 Reevaluation #4: Patient is calm down. Patient is in restraints. Patient is medically cleared. Patient will remain in the ER until he is cleared from a psychiatric standpoint by our mental health and psychiatry team. 10/30/19 06:45 ED Medical Decision Making - Lab Data Result diagrams: 10/30/19 04:28 10/30/19 04:28 - EKG Data -: EKG Interpreted by Me EKG shows normal: sinus rhythm, axis, intervals, QRS complexes, ST-T waves Rate: tachycardia - Medical Decision Making Patient is a 39-year-old male that presents emergency room with complaints of shortness of breath and palpitations. Patient found to have acute psychosis, paranoia, delusions flights of ideas, loose association. Patient was placed on 1013. Patient heart rate improved with fluids. Patient responded well to Geodon and Ativan after becoming acutely agitated. Patient's labs are unremarkable except for UDS positive for methamphetamines. Patient is medically clear. Patient's final disposition will come from our psychiatry mental health team. Patient remained in the ER as an ER hold he is cleared by psychiatry. - Differential Diagnosis Methamphetamine abuse, SOB, palpitations, acute psychosis. Critical care attestation.: If time is entered above; I have spent that time in minutes in the direct care of this critically ill patient, excluding procedure time. ED Disposition Clinical Impression: Acute psychosis, SOB (shortness of breath), Palpitations, Diaphoresis, Drug abuse, Tachycardia, Methamphetamine abuse Is pt being admited?: No Does the pt Need Aspirin: No Condition: Stable Referrals: PRIMARY CARE, [Primary Care Provider] - 2-3 Days Time of Disposition: 06:51
--- NOTE | 2019-10-30 04:33 | XRay Report ---
CHEST 1 VIEW INDICATION / CLINICAL INFORMATION: sob. COMPARISON: None available. FINDINGS: SUPPORT DEVICES: None. HEART / MEDIASTINUM: No significant abnormality. LUNGS / PLEURA: No significant pulmonary or pleural abnormality. No pneumothorax. ADDITIONAL FINDINGS: No significant additional findings. IMPRESSION: No acute pulmonary or pleural abnormality Signer Name: Rodger Duffy MD FACR Signed: 10/30/2019 4:28 AM Workstation Name: [id number]
[2019-10-30 04:58] LABS: Basophils % (Auto) 0.3 % (0.0-1.8); Hemoglobin 17.6 gm/dl (11.8-15.2); Mean Corpuscular HGB Conc 34 % (32-34); Mean Corpuscular Volume 98 fl (84-94); Monocytes # (Auto) 0.6 K/mm3 (0.0-0.8); Monocytes % (Auto) 4.8 % (0.0-7.3); Platelet Count 269 K/mm3 (140-440); Red Cell Distribution Width 14.6 % (13.2-15.2)
[2019-10-30 05:19] LABS: BUN/Creatinine Ratio 15; Blood Urea Nitrogen 15 mg/dL (9-20); Calcium 10.1 mg/dL (8.4-10.2); Hemolysis Index 11
[2019-10-30] MEDS ORDERED: ZIPRASIDONE MESYLATE 20 MG VIAL IM ONE ×2 (06:12→06:32)
[2019-10-30] MEDS ORDERED: LORazepam 2 MG/ML VIAL ONE (06:12)
[2019-10-30 06:19] LABS: Bacteria,Urine 4+ /HPF (Negative); Bilirubin,Urine NEG (Negative); Blood,Urine NEG (Negative); Color,Urine Yellow (Yellow); Hyaline Casts,Urine 1 /LPF; Mucus,Urine 3+ /HPF; Sperm,Urine 3+ /HPF (NP); Urobilinogen,Urine < 2.0 mg/dL (<2.0)
[2019-10-30 06:23] LABS: Benzodiazepines Screen,Urine PRESUMPTIVE NEGATIVE; Cannabinoid Screen,Urine PRESUMPTIVE NEGATIVE; Cocaine Screen,Urine PRESUMPTIVE NEGATIVE; Methadone Screen,Urine PRESUMPTIVE NEGATIVE
[2019-10-30] MEDS ORDERED: LORazepam 2 MG/ML VIAL IV ONE (06:33)
[2019-10-30 06:37] LABS: Amphetamine Screen,Urine PRESUMPTIVE POSITIVE
[2019-10-30 06:40] VITALS: BP 156/104
[2019-10-30 07:50] LABS: Opiate Screen,Urine PRESUMPTIVE NEGATIVE
== END 2019-10-30 16:14 | disposition home or self-care (01) ==
LOC: ED 03:34
DX: F23 Brief psychotic disorder (principal); F15.10 Other stimulant abuse, uncomplicated; R61 Generalized hyperhidrosis; R00.0 Tachycardia, unspecified; I10 Essential (primary) hypertension; R00.2 Palpitations; R06.02 Shortness of breath; F17.200 Nicotine dependence, unspecified, uncomplicated; F11.90 Opioid use, unspecified, uncomplicated; Z79.899 Other long term (current) drug therapy; Z98.890 Other specified postprocedural states; Z91.013 Allergy to seafood
CPT/HCPCS: 36415; 71045; 80048; 80307; 81001; 84443; 85025; 93005; 93010; 96372; 96374; 99285; J2060; J3486; J7030; 80320; G0480